=== PATIENT | female | born 1970 | race Caucasian/White ===

== ENCOUNTER → 2018-01-19 | Outpatient (CLI) | payer BC, OTHER ==
--- NOTE | 2018-01-21 10:44 | MM ---
Reason for exam: screening (asymptomatic). History: Patient had first child at age 33. Family history of breast cancer in mother at age 60 and breast cancer in sister at age 60. Reductions of both breasts, 2010. Physical Findings: A clinical breast exam by your physician is recommended on an annual basis and results should be correlated with mammographic findings. MG 3D Screening Mammo W/Cad Bilateral CC and MLO view(s) were taken. The breast tissue is heterogeneously dense. This may lower the sensitivity of mammography. There is chronic nodularity bilaterally. No significant changes when compared with prior studies. ASSESSMENT: Benign, BI-RAD 2 RECOMMENDATION: Routine screening mammogram of both breasts in 1 year.
== END | disposition home or self-care (01) ==
LOC: RADMAMWWP 14:55
PROVIDERS: ATTEND Family Medicine
DX: Z12.31 Encounter for screening mammogram for malignant neoplasm of breast (principal)
CPT/HCPCS: 77063; 77067

== ENCOUNTER 2020-11-22 10:03 | Emergency (ER) | payer OTHER ==
[2020-11-22 10:17] VITALS: RESP 18
--- NOTE | 2020-11-22 10:38 | ED ---
Chest Pain HPI - General Chief Complaint: Chest Pain Stated Complaint: covid+/chest pain Time Seen by Provider: 11/22/20 10:20 Source: patient Mode of arrival: ambulatory Limitations: no limitations - History of Present Illness Initial Comments: 50-year-old female with no significant past medical history presents to the emergency department with a chief complaint of chest tightness. Patient reports the symptoms begin early this morning while she woke up this morning. Patient reports it was located in the middle of her chest and lasted for approximately 45 minutes. She denies any chest pain per se. Denies any associated lightheadedness, dizziness, diaphoretic episodes or dyspnea. States she tested positive for Covid yesterday but has been symptomatically for the past 3 days. Also reports a nonproductive cough with some sinus congestion but denies any fevers or chills. Reports occasional myalgias but no significant fatigue. Denies history of early cardiac related deaths in the family. Not a smoker. - Related Data Home Medications Medication Instructions Recorded Confirmed Acetaminophen Tab [Tylenol Tab] 1,000 mg PO Q6HR PRN 11/22/20 11/22/20 Phentermine HCl [Adipex-P] 37.5 mg PO DAILY 11/22/20 11/22/20 Allergies Allergy/AdvReac Type Severity Reaction Status Date / Time No Known Allergies Allergy Verified 11/22/20 11:34 Review of Systems ROS Statement: Those systems with pertinent positive or pertinent negative responses have been documented in the HPI. ROS Other: All systems not noted in ROS Statement are negative. EKG Findings - EKG Comments: EKG Findings:: Sinus rhythm with no acute ischemic changes. Ventricular rate 85, MN 136, QRS 64, QTc 432. Past Medical History Past Medical History: No Reported History History of Any Multi-Drug Resistant Organisms: None Reported Past Surgical History: Breast Surgery, Section Past Psychological History: No Psychological Hx Reported Smoking Status: Never smoker Past Alcohol Use History: None Reported Past Drug Use History: None Reported General Exam Limitations: no limitations General appearance: alert, in no apparent distress, obese Head exam: Present: atraumatic, normocephalic, normal inspection Eye exam: Present: normal appearance, PERRL, EOMI Pupils: Present: normal accommodation ENT exam: Present: normal exam, normal oropharynx, mucous membranes moist, TM's normal bilaterally, normal external ear exam Neck exam: Present: normal inspection, full ROM. Absent: tenderness Respiratory exam: Present: normal lung sounds bilaterally. Absent: respiratory distress, wheezes, rales, rhonchi, stridor Cardiovascular Exam: Present: regular rate, normal rhythm, normal heart sounds. Absent: systolic murmur GI/Abdominal exam: Present: soft. Absent: distended, tenderness, guarding, rebound Extremities exam: Present: normal inspection, full ROM, normal capillary refill. Absent: tenderness, pedal edema, joint swelling Back exam: Present: normal inspection, full ROM. Absent: tenderness, CVA tenderness (R), CVA tenderness (L), muscle spasm Neurological exam: Present: alert, oriented X3, CN II-XII intact, normal gait Psychiatric exam: Present: normal affect, normal mood Skin exam: Present: warm, dry, intact, normal color Course Vital Signs 11/22/20 11/22/20 11/22/20 10:10 11:14 11:35 Temperature 98.1 F 98.1 F 98.7 F Pulse Rate 90 90 82 Respiratory 18 18 18 Rate Blood Pressure 127/84 127/84 115/78 O2 Sat by Pulse 95 95 Oximetry 11/22/20 11/22/20 12:15 13:13 Temperature Pulse Rate 80 75 Respiratory 18 18 Rate Blood Pressure 116/71 112/77 O2 Sat by Pulse Oximetry Chest Pain MDM - MDM 50-year-old female presents to emergency Department with a chief complaint of chest tightness. On physical examination, patient does not appear to be in any respiratory distress. Vital signs are within normal limits. She tested positive for Covid yesterday. I offered laboratory workup and imaging to the patient, she declined. She was okay with getting x-rays which reveal mild carton megaly but no other acute findings. I did offer monoclonal antibody which the patient would prefer to get. She does fit the criteria due to her BMI of 47. Patient was given the medication/infusion and observed for one hour. Patient on the procedure well. Return parameters discussed the patient was on standing ago. Case discussed with Disposition Clinical Impression: COVID-19 Disposition: HOME SELF-CARE Condition: Stable Instructions (If sedation given, give patient instructions): Coronavirus Disease 2019 (COVID-19) Additional Instructions: Please return to the Emergency Department if symptoms worsen or any other concerns. Is patient prescribed a controlled substance at d/c from ED?: No Referrals: Barrera Minor MD [Primary Care Provider] - 1-2 days Time of Disposition: 11:14
--- NOTE | 2020-11-22 11:03 | XR ---
EXAMINATION TYPE: XR chest 1V portable DATE OF EXAM: 11/22/2020 COMPARISON: NONE HISTORY: Shortness of breath TECHNIQUE: Single AP portable frontal upright view of the chest is obtained. FINDINGS: Evaluation slightly suboptimal due to patient's large body habitus and portable technique. There is mild reticular interstitial changes bilaterally without suspicious focal air space opacity, pleural effusion, or pneumothorax seen. The cardiac silhouette size is mildly enlarged. The osseo us structures are intact. IMPRESSION: Mild cardiomegaly with suspected mild chronic parenchymal changes bilaterally, no suspic ious acute infiltrate clearly seen.
[2020-11-22] MEDS ORDERED: BAMLANIVIMAB (EUA) 700 MG, ETESEVIMAB (EUA) 1,400 MG in SODIUM CHLORIDE 0.9% 50 ML IVPB ONE (11:30)
[2020-11-22 11:38] VITALS: TEMP 98.7
[2020-11-22] MEDS ORDERED: SODIUM CHLORIDE 0.9% 50 ML IVPB ONE (12:00)
[2020-11-22] MEDS ORDERED: SODIUM CHLORIDE 0.9% 500 ML 500 ML in EMPTY BAG 1 BAG IV PRN (12:17)
[2020-11-22 13:13] VITALS: BP 112/77; PULSE 75
== END 2020-11-22 14:32 | disposition home or self-care (01) ==
LOC: PROCWHC3 10:03 → EC 10:03 → EDSTATUS 11:30 → PROCWHC3 14:32 → EDSTATUS 14:37
DX: U07.1 COVID-19 (principal)
CPT/HCPCS: 99285; 96365; 96361; 93005; 71045; Q0245; M0245